=== PATIENT | male | born 1955 | race Caucasian/White ===

== ENCOUNTER 2017-06-20 15:27 | Emergency (ER) | payer SELFPAY ==
[~2017-06-20] VITALS: Ht 177.8 cm; Wt 69.5 kg
[2017-06-20] MEDS ORDERED: LIDOCAINE 1%/EPINEPHrine 1:100,000 SOLN 20 ML VIAL INFIL ONE (16:00)
[2017-06-20] MEDS ORDERED: ATOR10TA15 PO (16:05)
[2017-06-20] MEDS ORDERED: ASPI-516 CHEW (16:05)
[2017-06-20] MEDS ORDERED: CLOP75TA PO (16:05)
--- NOTE | 2017-06-20 16:08 | PD ---
HPI Chief Complaint: Laceration to the leg Time Seen by Provider: 15:40 Travel History International Travel<30 days: No Contact w/Intl Traveler<30days: No History of Present Illness HPI 61-year-old male patient with history of CAD, stenting, presents to the ER today brought in by EMS because he had been cut by a boat propeller on the left leg, had large amount of bleeding at the scene, tourniquet was applied. He reports feeling some lightheadedness. He denies any other issues or injuries. Modifying Factors: None Associated Signs & Symptoms: Left leg laceration, from both propellers Risk Factors: None PFSH Social History Tobacco Use: No Allergies-Medications (Allergen,Severity, Reaction): Coded Allergies: No Known Allergies (Unverified , 06/20/17) Reported Meds & Prescriptions Reported Meds & Active Scripts Active Reported Aspirin 81 Mg Chew 81 Mg CHEW DAILY Atorvastatin (Atorvastatin Calcium) 10 Mg Tab 10 Mg PO HS Clopidogrel (Clopidogrel Bisulfate) 75 Mg Tab 75 Mg PO DAILY Review of Systems Except as stated in HPI: all other systems reviewed are Neg Physical Exam Narrative GENERAL: Well-developed elderly male patient currently in mild distress. Awake and oriented 3. SKIN: Focused skin assessment warm/dry. HEAD: Atraumatic. Normocephalic. EYES: Pupils equal and round. No scleral icterus. No injection or drainage. ENT: No nasal bleeding or discharge. Mucous membranes pink and moist. NECK: Trachea midline. No JVD. CARDIOVASCULAR: Regular rate and rhythm. No murmur appreciated. RESPIRATORY: No accessory muscle use. Clear to auscultation. Breath sounds equal bilaterally. GASTROINTESTINAL: Abdomen soft, non-tender, nondistended. Hepatic and splenic margins not palpable. MUSCULOSKELETAL: No obvious deformities. No clubbing. No cyanosis. No edema. EXTREMITIES: No clubbing, cyanosis, or edema. No joint tenderness, effusion, or edema noted. There is a 8 cm laceration to the left lower leg area, bleeding controlled. NEUROLOGICAL: Awake and alert. No obvious cranial nerve deficits. Motor grossly within normal limits. Normal speech. PSYCHIATRIC: Appropriate mood and affect; insight and judgment normal. Data Data Orders Orders Complete Blood Count With Diff (06/20/17 15:40) Basic Metabolic Panel (Bmp) (06/20/17 15:40) Prothrombin Time / Inr (Pt) (06/20/17 15:40) Act Partial Throm Time (Ptt) (06/20/17 15:40) Type And Screen (06/20/17 15:40) Tibia/Fibula (Ap/Lat) (06/20/17 15:49) Lidocai-Epi 1%-1:100,000 Inj (Xylocaine- (06/20/17 16:00) Lidocaine Pf 1% Inj (Xylocaine-Mpf 1% In (06/20/17 16:12) Morphine Inj (Morphine Inj) (06/20/17 17:30) Ed Discharge Order (06/20/17 18:15) Labs Laboratory Tests Test 06/20/17 16:00 White Blood Count 13.6 TH/MM3 Red Blood Count 3.34 MIL/MM3 Hemoglobin 11.7 GM/DL Hematocrit 33.5 % Mean Corpuscular Volume 100.5 FL Mean Corpuscular Hemoglobin 34.9 PG Mean Corpuscular Hemoglobin Concent 34.8 % Red Cell Distribution Width 13.1 % Platelet Count 315 TH/MM3 Mean Platelet Volume 6.5 FL Neutrophils (%) (Auto) 81.1 % Lymphocytes (%) (Auto) 7.3 % Monocytes (%) (Auto) 10.6 % Eosinophils (%) (Auto) 0.4 % Basophils (%) (Auto) 0.6 % Neutrophils # (Auto) 11.0 TH/MM3 Lymphocytes # (Auto) 1.0 TH/MM3 Monocytes # (Auto) 1.4 TH/MM3 Eosinophils # (Auto) 0.1 TH/MM3 Basophils # (Auto) 0.1 TH/MM3 CBC Comment DIFF FINAL Differential Comment Prothrombin Time 10.0 SEC Prothromb Time International Ratio 1.0 RATIO Activated Partial Thromboplast Time 21.9 SEC Blood Urea Nitrogen 6 MG/DL Creatinine 0.66 MG/DL Random Glucose 83 MG/DL Calcium Level 8.0 MG/DL Sodium Level 130 MEQ/L Potassium Level 4.2 MEQ/L Chloride Level 99 MEQ/L Carbon Dioxide Level 21.6 MEQ/L Anion Gap 9 MEQ/L Estimat Glomerular Filtration Rate 122 ML/MIN MDM Medical Decision Making Medical Screen Exam Complete: Yes Emergency Medical Condition: Yes Medical Record Reviewed: Yes Interpretation(s) Laboratory Tests Test 06/20/17 16:00 White Blood Count 13.6 TH/MM3 (4.0-11.0) Red Blood Count 3.34 MIL/MM3 (4.50-5.90) Hemoglobin 11.7 GM/DL (13.0-17.0) Hematocrit 33.5 % (39.0-51.0) Mean Corpuscular Volume 100.5 FL (80.0-100.0) Mean Corpuscular Hemoglobin 34.9 PG (27.0-34.0) Mean Platelet Volume 6.5 FL (7.0-11.0) Neutrophils (%) (Auto) 81.1 % (16.0-70.0) Lymphocytes (%) (Auto) 7.3 % (9.0-44.0) Monocytes (%) (Auto) 10.6 % (0.0-8.0) Neutrophils # (Auto) 11.0 TH/MM3 (1.8-7.7) Monocytes # (Auto) 1.4 TH/MM3 (0-0.9) Activated Partial Thromboplast Time 21.9 SEC (24.3-30.1) Blood Urea Nitrogen 6 MG/DL (7-18) Calcium Level 8.0 MG/DL (8.5-10.1) Sodium Level 130 MEQ/L (136-145) Last 24 hours Impressions Tibia/Fibula X-Ray 06/20/17 1549 Signed Impressions: Service Date/Time: May 16:06 - CONCLUSION: No acute bony injury Yusef Artis MD Differential Diagnosis Left leg laceration Narrative Course Tib-fib x-ray did not show any foreign bodies or bony injuries. Laceration was sutured by my PA. And at this point, lab work appears to show no significant drop in hemoglobin. Vital signs are stable. Plan would be to release him with follow-up to primary care doctor, suture removal will need to be done in 2 weeks. Wound care instructions are given. The plan was discussed with the patient he states understanding. Diagnosis Primary Impression: Leg laceration Med/Other Pt SpecificInfo: Prescription(s) given Scripts Doxycycline Hyclate (Doxycycline Hyclate) 100 Mg Cap 100 MG PO BID for Infection, #20 CAP 0 Refills Prov: Medardo Goddadr MD 06/20/17 Disposition: 01 DISCHARGE HOME Condition: Stable Medardo Goddard MD Jun 20, 2017 16:08
[2017-06-20] MEDS ORDERED: LIDOCAINE HCL 1% PF 30 ML VIAL ONE (16:12)
--- NOTE | 2017-06-20 16:16 | RADRPT ---
EXAM DATE/TIME: 06/20/2017 16:06 [facility] COMPARISON: No previous studies available for comparison. INDICATIONS : Left tibia laceration after falling on a boat propeller. MEDICAL HISTORY : None. SURGICAL HISTORY : None. ENCOUNTER: Initial ACUITY: 1 day PAIN SCORE: 5/10 LOCATION: Left middle tibia. FINDINGS: Two view examination of the left tibia demonstrates no evidence of fracture or dislocation. Bony min eralization is normal. No radiodense foreign bodies appreciated. CONCLUSION: No acute bony injury Yusef Artis MD on June 20, 2017 at 16:11 Board Certified Radiologist. This report was verified electronically.
[2017-06-20 16:33] LABS: BASOPHIL # 0.1 TH/MM3 (0-0.2); BASOPHIL % 0.6 % (0.0-2.0); EOSINOPHIL # 0.1 TH/MM3 (0-0.4); EOSINOPHIL % 0.4 % (0.0-4.0); HEMATOCRIT 33.5 % (39.0-51.0); HEMOGLOBIN 11.7 GM/DL (13.0-17.0); LYMPH % 7.3 % (9.0-44.0); MEAN CELL VOLUME 100.5 FL (80.0-100.0); MEAN CORPUSCULAR HEMOGLOBIN 34.9 PG (27.0-34.0); MEAN CORPUSCULAR HGB CONC 34.8 % (32.0-36.0); MEAN PLATELET VOLUME 6.5 FL (7.0-11.0); MONO % 10.6 % (0.0-8.0); MONOCYTE # 1.4 TH/MM3 (0-0.9); NEUT % 81.1 % (16.0-70.0); PLATELET COUNT 315 TH/MM3 (150-450); RED BLOOD COUNT 3.34 MIL/MM3 (4.50-5.90); RED CELL DISTRIBUTION WIDTH 13.1 % (11.6-17.2); WHITE BLOOD COUNT 13.6 TH/MM3 (4.0-11.0)
[2017-06-20 17:07] LABS: BICARBONATE 21.6 MEQ/L (21.0-32.0); CREATININE 0.66 MG/DL (0.60-1.30)
[2017-06-20] MEDS ORDERED: MORPHINE SULFATE 2 MG/ML INJ IV PUSH ONE (17:30)
[2017-06-20 17:40] VITALS: BP 124/71; PULSE 91; RESP 16; TEMP 98.7; O2SAT 97
--- NOTE | 2017-06-20 17:57 | PD ---
Physical Exam Date Seen by Provider: Jun 20, 2017 Time Seen by Provider: 17:56 Narrative 61-year-old male presents to the ED for evaluation of laceration to his left leg. I was asked by my attending to repair laceration. Please refer to her note. Data Data Orders Orders Complete Blood Count With Diff (06/20/17 15:40) Basic Metabolic Panel (Bmp) (06/20/17 15:40) Prothrombin Time / Inr (Pt) (06/20/17 15:40) Act Partial Throm Time (Ptt) (06/20/17 15:40) Type And Screen (06/20/17 15:40) Tibia/Fibula (Ap/Lat) (06/20/17 15:49) Lidocai-Epi 1%-1:100,000 Inj (Xylocaine- (06/20/17 16:00) Lidocaine Pf 1% Inj (Xylocaine-Mpf 1% In (06/20/17 16:12) Morphine Inj (Morphine Inj) (06/20/17 17:30) Labs Laboratory Tests Test 06/20/17 16:00 White Blood Count 13.6 TH/MM3 Red Blood Count 3.34 MIL/MM3 Hemoglobin 11.7 GM/DL Hematocrit 33.5 % Mean Corpuscular Volume 100.5 FL Mean Corpuscular Hemoglobin 34.9 PG Mean Corpuscular Hemoglobin Concent 34.8 % Red Cell Distribution Width 13.1 % Platelet Count 315 TH/MM3 Mean Platelet Volume 6.5 FL Neutrophils (%) (Auto) 81.1 % Lymphocytes (%) (Auto) 7.3 % Monocytes (%) (Auto) 10.6 % Eosinophils (%) (Auto) 0.4 % Basophils (%) (Auto) 0.6 % Neutrophils # (Auto) 11.0 TH/MM3 Lymphocytes # (Auto) 1.0 TH/MM3 Monocytes # (Auto) 1.4 TH/MM3 Eosinophils # (Auto) 0.1 TH/MM3 Basophils # (Auto) 0.1 TH/MM3 CBC Comment DIFF FINAL Differential Comment Prothrombin Time 10.0 SEC Prothromb Time International Ratio 1.0 RATIO Activated Partial Thromboplast Time 21.9 SEC Blood Urea Nitrogen 6 MG/DL Creatinine 0.66 MG/DL Random Glucose 83 MG/DL Calcium Level 8.0 MG/DL Sodium Level 130 MEQ/L Potassium Level 4.2 MEQ/L Chloride Level 99 MEQ/L Carbon Dioxide Level 21.6 MEQ/L Anion Gap 9 MEQ/L Estimat Glomerular Filtration Rate 122 ML/MIN MDM Medical Record Reviewed: Yes Supervised Visit with SATHYA: No Procedures Procedure Narrative LACERATION LOCATION: left leg LENGTH: 4 cm NUMBER OF STITCHES/MARIA LUISA: 4 sutures REPAIR: The area of the laceration was prepped with Betadine and sterilely draped. The laceration was infiltrated with 1% Xylocaine. The wound was copiously irrigated and explored without evidence of foreign body, tendon injury or neurovascular injury. The wound was closed using 3-0 Prolene. This was a 1 layer repair. A sterile dressing was applied. The patient was advised to keep the dressing clean and dry. Patient tolerated the procedure well. Sage Marlow Jun 20, 2017 17:57
[2017-06-20] MEDS ORDERED: DOXY100C PO (18:19)
[2017-06-20 18:25] VITALS: BP_SYST 129; BP_DIAS 60; BP_DIAS 88; PULSE 81; RESP 16; O2SAT 96
[2017-06-20] MEDS ORDERED: TETANUS/DIPHTHERIA TOXOID ADULT 0.5 ML VIAL IM ONE (18:30)
== END 2017-06-20 19:09 | disposition home or self-care (01) ==
LOC: NEPC 15:27
DX: S81.812A Laceration without foreign body, left lower leg, initial encounter (principal); R42 Dizziness and giddiness; I25.10 Atherosclerotic heart disease of native coronary artery without angina pectoris; W45.8XXA Other foreign body or object entering through skin, initial encounter; Z23 Encounter for immunization; Z79.82 Long term (current) use of aspirin; Z79.899 Other long term (current) drug therapy; Z79.02 Long term (current) use of antithrombotics/antiplatelets
CPT/HCPCS: 12002; 73590; 80048; 85025; 85610; 85730; 90471; 90714; 96374; 99284; J2270